=== PATIENT | female | born 1970 | race Caucasian/White ===

== ENCOUNTER 2016-08-14 13:12 | Emergency (ER) | payer BC ==
[2016-08-14 13:21] VITALS: TEMP 98.6
[2016-08-14] MEDS ORDERED: ONDANSETRON HCL 4 MG/2 ML SOL IV ONE (13:28)
[2016-08-14] MEDS ORDERED: ONDANSETRON HCL 4 MG/2 ML SOL ONE (13:30)
[2016-08-14] MEDS ORDERED: SODIUM CHLORIDE 0.9% 1000ML 1,000 ML IV SCH (13:30)
[2016-08-14 13:59] LABS: BASOPHILS % (AUTO) 1 % (0-3); EOSINOPHILS % (AUTO) 1 % (0-9); HEMATOCRIT 46 % (35-47); MEAN CORPUSCULAR HGB CONC 33.6 gm/dl (32.0-36.0); MEAN CORPUSCULAR VOLUME 86 fL (81-99); MONOCYTES % (AUTO) 12.1 % (0-12); NEUTROPHILS % (AUTO) 68.4 % (37-80)
[2016-08-14 14:10] LABS: CALCIUM 9.2 mg/dl (8.5-10.1)
[2016-08-14] MEDS ORDERED: POTASSIUM CHLORIDE 10 MEQ TER PO ONE (14:27)
[2016-08-14] MEDS ORDERED: POTASSIUM CHLORIDE 10 MEQ TER ONE ×2 (14:57→14:59)
[2016-08-14] MEDS ORDERED: SODIUM CHLORIDE 0.9% FLUSH 10 ML SOL IV PRN (15:18)
[2016-08-14 16:34] VITALS: BP 137/92; PULSE 75; RESP 15; O2SAT 98
== END 2016-08-14 15:50 | disposition home or self-care (01) ==
LOC: ED 13:12
DX: E86.0 Dehydration (principal); E87.6 Hypokalemia; R11.2 Nausea with vomiting, unspecified; R19.7 Diarrhea, unspecified
CPT/HCPCS: 99285 ×3; 85025; 87507; J2405; 80048